=== PATIENT | male | born 1950 | race Caucasian/White ===

== ENCOUNTER → 2019-07-01 09:15 | Outpatient (BNVA) | payer OTHER, MEDICARE, SELFPAY | PROVIDERS: Family Provider Nurse Practitioner; PCP Nurse Practitioner; Visit Provider Nurse Practitioner | DX: E11.9 Type 2 diabetes mellitus without complications (principal) | CPT/HCPCS: 83036 ==

== ENCOUNTER → 2019-09-09 09:34 | Outpatient (BNVA) | payer OTHER, MEDICARE, SELFPAY | PROVIDERS: Family Provider Nurse Practitioner; PCP Nurse Practitioner; Visit Provider Nurse Practitioner | DX: I10 Essential (primary) hypertension (principal); E78.2 Mixed hyperlipidemia; J43.9 Emphysema, unspecified; K21.9 Gastro-esophageal reflux disease without esophagitis; M47.812 Spondylosis without myelopathy or radiculopathy, cervical region; M51.36 Other intervertebral disc degeneration, lumbar region; Z23 Encounter for immunization | CPT/HCPCS: 80053 ==

== ENCOUNTER → 2019-12-09 09:44 | Outpatient (BNVA) | payer OTHER, MEDICARE, SELFPAY | PROVIDERS: Family Provider Nurse Practitioner; PCP Nurse Practitioner; Visit Provider Nurse Practitioner | DX: E78.2 Mixed hyperlipidemia (principal); J43.9 Emphysema, unspecified; I10 Essential (primary) hypertension; K21.9 Gastro-esophageal reflux disease without esophagitis; M51.36 Other intervertebral disc degeneration, lumbar region; K58.9 Irritable bowel syndrome, unspecified; M19.041 Primary osteoarthritis, right hand; M19.042 Primary osteoarthritis, left hand | CPT/HCPCS: 80053; 80061; 81000 ==

== ENCOUNTER → 2020-03-09 10:08 | Outpatient (BNVA) | payer OTHER, MEDICARE, SELFPAY | PROVIDERS: Family Provider Nurse Practitioner; PCP Nurse Practitioner; Visit Provider Nurse Practitioner | DX: R73.9 Hyperglycemia, unspecified (principal) | CPT/HCPCS: 83036 ==

== ENCOUNTER → 2020-05-06 09:41 | Outpatient (BNVA) | payer OTHER, MEDICARE, SELFPAY | PROVIDERS: Family Provider Nurse Practitioner; PCP Nurse Practitioner; Visit Provider Nurse Practitioner | DX: M10.9 Gout, unspecified (principal) | CPT/HCPCS: 73562; 84550 ==

== ENCOUNTER → 2020-08-23 09:22 | Outpatient (BNVA) | payer OTHER, MEDICARE, SELFPAY | PROVIDERS: Family Provider Nurse Practitioner; PCP Nurse Practitioner; Visit Provider Nurse Practitioner | DX: E55.9 Vitamin D deficiency, unspecified (principal); I10 Essential (primary) hypertension; M51.36 Other intervertebral disc degeneration, lumbar region | CPT/HCPCS: 80053; 82306; 83735; 85025 ==

== ENCOUNTER → 2020-08-25 10:04 | Outpatient (BNVA) | payer OTHER, MEDICARE, SELFPAY | PROVIDERS: Family Provider Nurse Practitioner; PCP Nurse Practitioner; Visit Provider Nurse Practitioner | DX: M54.5 Low back pain (principal); M25.511 Pain in right shoulder; M19.011 Primary osteoarthritis, right shoulder; M54.2 Cervicalgia | CPT/HCPCS: 72040; 72100; 73030 ==

== ENCOUNTER → 2020-11-24 11:10 | Outpatient (BNVA) | payer OTHER, MEDICARE, SELFPAY | PROVIDERS: Family Provider Nurse Practitioner; PCP Nurse Practitioner; Visit Provider Nurse Practitioner | DX: I10 Essential (primary) hypertension (principal); Z12.5 Encounter for screening for malignant neoplasm of prostate; M51.36 Other intervertebral disc degeneration, lumbar region; K58.9 Irritable bowel syndrome, unspecified; E78.2 Mixed hyperlipidemia; K21.9 Gastro-esophageal reflux disease without esophagitis; M19.041 Primary osteoarthritis, right hand; M19.042 Primary osteoarthritis, left hand; R41.3 Other amnesia | CPT/HCPCS: 80053; 81000; 82607; 84443; 85025; G0103 ==

== ENCOUNTER → 2021-02-24 10:01 | Outpatient (BNVA) | payer OTHER, MEDICARE, SELFPAY | PROVIDERS: Family Provider Nurse Practitioner; PCP Nurse Practitioner; Visit Provider Nurse Practitioner | DX: M51.36 Other intervertebral disc degeneration, lumbar region (principal); E53.8 Deficiency of other specified B group vitamins; K58.9 Irritable bowel syndrome, unspecified; I10 Essential (primary) hypertension; E78.2 Mixed hyperlipidemia; M19.041 Primary osteoarthritis, right hand; M19.042 Primary osteoarthritis, left hand; L29.9 Pruritus, unspecified | CPT/HCPCS: 82607 ==

== ENCOUNTER → 2021-04-11 12:04 | Outpatient (BNVA) | payer OTHER, MEDICARE, SELFPAY | PROVIDERS: Family Provider Nurse Practitioner; PCP Nurse Practitioner; Visit Provider Nurse Practitioner | DX: Z20.822 Contact with and (suspected) exposure to COVID-19 (principal) | CPT/HCPCS: 87635 ==

== ENCOUNTER → 2021-05-04 09:57 | Outpatient (BNVA) | payer OTHER, MEDICARE, SELFPAY | PROVIDERS: Family Provider Nurse Practitioner; PCP Nurse Practitioner; Visit Provider Nurse Practitioner | DX: J43.9 Emphysema, unspecified (principal); R05.9 Cough, unspecified; I25.10 Atherosclerotic heart disease of native coronary artery without angina pectoris | CPT/HCPCS: 71046 ==

== ENCOUNTER → 2021-05-24 10:19 | Outpatient (BNVA) | payer OTHER, MEDICARE, SELFPAY | PROVIDERS: Family Provider Nurse Practitioner; PCP Nurse Practitioner; Visit Provider Nurse Practitioner | DX: M51.36 Other intervertebral disc degeneration, lumbar region (principal); E53.8 Deficiency of other specified B group vitamins; E78.2 Mixed hyperlipidemia; K58.9 Irritable bowel syndrome, unspecified; I10 Essential (primary) hypertension; K21.9 Gastro-esophageal reflux disease without esophagitis; M19.041 Primary osteoarthritis, right hand; M19.042 Primary osteoarthritis, left hand | CPT/HCPCS: 80053; 80061; 82607 ==

== ENCOUNTER → 2021-10-25 11:13 | Outpatient (BNVA) | payer MEDICARE, OTHER, SELFPAY | PROVIDERS: Family Provider Nurse Practitioner; PCP Nurse Practitioner; Visit Provider Nurse Practitioner | DX: K58.9 Irritable bowel syndrome, unspecified (principal); E53.8 Deficiency of other specified B group vitamins; M51.36 Other intervertebral disc degeneration, lumbar region; I10 Essential (primary) hypertension; K21.9 Gastro-esophageal reflux disease without esophagitis; E78.2 Mixed hyperlipidemia; M19.041 Primary osteoarthritis, right hand; M19.042 Primary osteoarthritis, left hand; J43.9 Emphysema, unspecified | CPT/HCPCS: 80053; 80061; 82607 ==

== ENCOUNTER → 2022-01-18 11:45 | Outpatient (BNVA) | payer MEDICARE, OTHER, SELFPAY | PROVIDERS: Family Provider Nurse Practitioner; PCP Nurse Practitioner; Visit Provider Nurse Practitioner | DX: M51.36 Other intervertebral disc degeneration, lumbar region (principal); M19.041 Primary osteoarthritis, right hand; M19.042 Primary osteoarthritis, left hand; E78.2 Mixed hyperlipidemia; K21.9 Gastro-esophageal reflux disease without esophagitis; I10 Essential (primary) hypertension; K58.9 Irritable bowel syndrome, unspecified; L29.9 Pruritus, unspecified; E53.8 Deficiency of other specified B group vitamins | CPT/HCPCS: 80053; 82607 ==

== ENCOUNTER → 2022-04-05 11:19 | Outpatient (BNVA) | payer MEDICARE, OTHER, SELFPAY | PROVIDERS: Family Provider Nurse Practitioner; PCP Nurse Practitioner; Visit Provider Nurse Practitioner | DX: M54.50 Low back pain, unspecified (principal); R41.3 Other amnesia | CPT/HCPCS: 81000 ==

== ENCOUNTER 2022-05-02 07:11 | Outpatient (CLI) | payer MEDICARE, SELFPAY ==
--- NOTE | 2022-05-02 07:15 | MR_ITS ---
WS: [id number] MRI HEAD WITHOUT CONTRAST TECHNIQUE: Sagittal T1, T2 axial, T2 axial FLAIR, axial and coronal T1 images, axial susceptibility w eighted imaging, axial diffusion weighted images, and coronal T2 images were obtained. CLINICAL INFORMATION: R41.3 - Other amnesia COMPARISON: None. FINDINGS: No evidence of restricted diffusion to suggest acute ischemia. Ventricular system and basal cisterns are patent. Moderate small vessel changes. Moderate parenchymal volume loss. Small vessel changes in the alex. Normal posterior fossa. Normal vascular flow voids at the skull base. No extra-axial fluid collections. No evidence of mass or mass effect. Paranasal sinuses and mastoid air cells well aerated . Tiny focus of hemosiderin in the RIGHT inferior cerebellar tonsil. No other foci of hemosiderin. Norm al optic chiasm and pituitary infundibulum. Mild symmetric atrophy temporal lobes and hippocampal for mations. Normal cavernous sinuses and Meckel's cave. MR/MR head wo con* [id number] IMPRESSION: 1. No evidence of restricted diffusion to suggest acute ischemia. 2. Moderate small vessel changes with moderate parenchymal volume loss. Small vessel changes in the alex. 3. Paranasal sinuses and mastoid air cells well aerated. 4. Tiny focus of hemosiderin in the RIGHT inferior cerebellar tonsil. No other foci of hemosiderin. 5. Normal optic chiasm and pituitary infundibulum. 6. Mild symmetric atrophy temporal lobes and hippocampal formations.
== END 2022-05-02 07:12 | disposition home or self-care (01) ==
LOC: RAD 07:12
PROVIDERS: Family Provider Nurse Practitioner; PCP Nurse Practitioner; Visit Provider Nurse Practitioner
DX: R41.3 Other amnesia (principal); G31.89 Other specified degenerative diseases of nervous system
CPT/HCPCS: 70551

== ENCOUNTER → 2022-05-08 10:45 | Outpatient (BNVA) | payer MEDICARE, OTHER, SELFPAY | PROVIDERS: Family Provider Nurse Practitioner; PCP Nurse Practitioner; Visit Provider Nurse Practitioner | DX: I10 Essential (primary) hypertension (principal); J02.9 Acute pharyngitis, unspecified; R26.9 Unspecified abnormalities of gait and mobility; F03.90 Unspecified dementia, unspecified severity, without behavioral disturbance, psychotic disturbance, mood disturbance, and anxiety; M41.9 Scoliosis, unspecified; J43.9 Emphysema, unspecified; W19.XXXA Unspecified fall, initial encounter; Y92.009 Unspecified place in unspecified non-institutional (private) residence as the place of occurrence of the external cause; S00.93XA Contusion of unspecified part of head, initial encounter | CPT/HCPCS: 81000; 87880 ==

== ENCOUNTER → 2022-06-12 11:17 | Outpatient (BNVA) | payer MEDICARE, OTHER, SELFPAY | PROVIDERS: Family Provider Nurse Practitioner; PCP Nurse Practitioner; Visit Provider Nurse Practitioner | DX: I10 Essential (primary) hypertension (principal); F32.9 Major depressive disorder, single episode, unspecified; M51.36 Other intervertebral disc degeneration, lumbar region; J43.9 Emphysema, unspecified; E78.2 Mixed hyperlipidemia; K58.9 Irritable bowel syndrome, unspecified; E53.8 Deficiency of other specified B group vitamins | CPT/HCPCS: 81000 ==

== ENCOUNTER 2022-07-10 09:42 | Outpatient (CLI) | payer MEDICARE, OTHER, SELFPAY ==
[2022-07-10 11:40] LABS: Albumin Level 4.1 g/dL (3.5-5.2); Anion Gap 14.6 (5-19); Blood Urea Nitrogen 38 mg/dL (8-23); Calcium 9.9 mg/dL (8.5-10.5); Carbon Dioxide 23 mmol/L (22-29); Chloride 103 mmol/L (98-107); Glucose 104 mg/dL (65-115); Phosphorus 3.8 mg/dL (2.5-4.5); Potassium 4.6 mmol/L (3.5-5.1); Sodium 136 mmol/L (136-145)
== END 2022-07-10 09:43 | disposition home or self-care (01) ==
PROVIDERS: Family Provider Nurse Practitioner; PCP Nurse Practitioner; Visit Provider Internal Medicine Nephrology
DX: N17.0 Acute kidney failure with tubular necrosis (principal)
CPT/HCPCS: 80069

== ENCOUNTER 2022-08-04 10:56 | Outpatient (CLI) | payer MEDICARE, OTHER, SELFPAY ==
[2022-08-04 11:42] LABS: Basophils # 0.1 10^3/uL (0.0-0.1); Basophils % 0.5 %; Eosinophils # 0.2 10^3/uL (0.0-0.8); Eosinophils % 2.6 %; Hematocrit 37.6 % (42.0-52.0); Hemoglobin 11.8 g/dL (11.7-16.6); Lymphocytes # 2.9 10^3/uL (0.8-4.8); Lymphocytes % 31.9 %; Mean Corpuscular HGB Conc 31.4 g/dL (30.0-36.0); Mean Corpuscular Volume 101.9 fl (80-94); Mean Platelet Volume 8.6 fL (7.4-10.4); Monocytes % 10.8 %; Neutrophils # 4.89 10^3/uL (1.8-7.7); Neutrophils % 53.7 %; Nucleated Red Blood Cells % 0 %; Platelet Count 377 10^3/cmm (130-400); Red Blood Count 3.69 10^6/uL (4.1-5.3); Red Cell Distribution Width 13.6 % (12.1-15.1); White Blood Count 9.1 10^3/uL (4.0-10.0)
[2022-08-04 12:05] LABS: Albumin Level 4.4 g/dL (3.5-5.2); Anion Gap 16.2 (5-19); Blood Urea Nitrogen 39 mg/dL (8-23); Calcium 9.7 mg/dL (8.5-10.5); Carbon Dioxide 24 mmol/L (22-29); Chloride 101 mmol/L (98-107); Glucose 139 mg/dL (65-115); Phosphorus 4.2 mg/dL (2.5-4.5); Potassium 6.2 mmol/L (3.5-5.1); Sodium 135 mmol/L (136-145)
[2022-08-04 12:09] LABS: Urine Creatinine 74 mg/dL (39-259)
[2022-08-04 12:11] LABS: Calcium 9.7 mg/dL (8.5-10.5)
[2022-08-04 12:15] LABS: UPRO/UCREAT Ratio 0.35 mg/mg CR; Urine Protein Random 26 mg/dL
[2022-08-04 12:18] LABS: Parathyroid Hormone 63.4 pg/mL (15-65)
== END 2022-08-04 10:57 | disposition home or self-care (01) ==
PROVIDERS: PCP Nurse Practitioner; Visit Provider Registered Nurse
DX: N18.9 Chronic kidney disease, unspecified (principal)
CPT/HCPCS: 80069; 82310; 82570; 83970; 84156; 85025

== ENCOUNTER → 2022-08-17 17:05 | Outpatient (BNVA) | payer MEDICARE, OTHER, SELFPAY | PROVIDERS: PCP Nurse Practitioner; Visit Provider Nurse Practitioner | DX: N18.32 Chronic kidney disease, stage 3b (principal) | CPT/HCPCS: 80048; 82043 ==

== ENCOUNTER 2022-10-03 12:13 | Outpatient (CLI) | payer MEDICARE, OTHER, SELFPAY ==
[2022-10-03 13:14] LABS: Basophils % 0.4 %; Eosinophils # 0.2 10^3/uL (0.0-0.8); Eosinophils % 2.5 %; Hematocrit 40.8 % (42.0-52.0); Hemoglobin 13.2 g/dL (11.7-16.6); Lymphocytes % 25.6 %; Mean Corpuscular HGB Conc 32.4 g/dL (30.0-36.0); Mean Corpuscular Hemoglobin 32.2 pg (28.0-34.0); Mean Corpuscular Volume 99.5 fl (80-94); Mean Platelet Volume 8.7 fL (7.4-10.4); Monocytes # 0.7 10^3/uL (0.2-0.9); Monocytes % 8.6 %; Neutrophils % 62.6 %; Nucleated Red Blood Cells % 0 %; Platelet Count 283 10^3/cmm (130-400); Red Cell Distribution Width 12.5 % (12.1-15.1)
[2022-10-03 13:35] LABS: Calcium 8.7 mg/dL (8.5-10.5); Urine Creatinine 131 mg/dL (39-259)
[2022-10-03 13:36] LABS: UPRO/UCREAT Ratio 0.31 mg/mg CR; Urine Protein Random 41 mg/dL
[2022-10-03 13:40] LABS: Chol HDL Ratio 2.64 mg/dL (1.0-5.00); Cholesterol 148 mg/dL (0-200); HDL Cholesterol 56 mg/dL (60-100); LDL Cholesterol Calculated 67 mg/dL (50-129); Triglycerides 126 mg/dL (0-150); VLDL Cholestrol Calculation 25 mg/dL (0-30)
[2022-10-03 13:42] LABS: Parathyroid Hormone 58.5 pg/mL (15-65)
[2022-10-03 13:57] LABS: Vitamin B12 286 pg/mL (232-1245)
[2022-10-03 13:59] LABS: 25 Hydroxy Vitamin D 30 ng/mL (30-100); Alanine Aminotransferase 22 U/L (0-41); Alkaline Phosphatase 72 U/L (40-130); Aspartate Amino Transferase 21 U/L (0-40); Blood Urea Nitrogen 19 mg/dL (8-23); Calcium 8.8 mg/dL (8.5-10.5); Carbon Dioxide 26 mmol/L (22-29); Chloride 105 mmol/L (98-107); Globulin 2.6 g/dL (1.3-4.6); Glucose 108 mg/dL (65-115); Osmolality Calculated 293 mOsm/kg (285-295); Sodium 140 mmol/L (136-145); Total Bilirubin 0.5 mg/dL (0.15-1.2); Total Protein 6.6 g/dL (6.6-8.7)
== END 2022-10-03 12:14 | disposition home or self-care (01) ==
PROVIDERS: PCP Nurse Practitioner; Visit Provider Registered Nurse
DX: N18.32 Chronic kidney disease, stage 3b (principal); E55.9 Vitamin D deficiency, unspecified; E53.8 Deficiency of other specified B group vitamins; I10 Essential (primary) hypertension
CPT/HCPCS: 80053; 80061; 82306; 82310; 82570; 82607; 83970; 84156; 85025

== ENCOUNTER → 2023-02-21 12:25 | Outpatient (BNVA) | payer MEDICARE, MEDICAID, SELFPAY | PROVIDERS: PCP Nurse Practitioner; Visit Provider Nurse Practitioner | DX: F32.9 Major depressive disorder, single episode, unspecified (principal); E53.8 Deficiency of other specified B group vitamins; K58.9 Irritable bowel syndrome, unspecified; F03.90 Unspecified dementia, unspecified severity, without behavioral disturbance, psychotic disturbance, mood disturbance, and anxiety; M51.36 Other intervertebral disc degeneration, lumbar region; M10.9 Gout, unspecified; E78.2 Mixed hyperlipidemia; R23.8 Other skin changes | CPT/HCPCS: 80053; 80061; 81000; 82607 ==

== ENCOUNTER 2023-04-09 14:49 | Outpatient (CLI) | payer MEDICARE, MEDICAID, SELFPAY ==
[2023-04-09 15:28] LABS: Basophils % 0.3 %; Eosinophils # 0.3 10^3/uL (0.0-0.8); Eosinophils % 2.9 %; Hematocrit 46.1 % (37-53); Lymphocytes # 2.7 10^3/uL (0.8-4.8); Lymphocytes % 26.1 %; Mean Corpuscular HGB Conc 32.5 g/dL (30-55); Mean Corpuscular Hemoglobin 32.8 pg (27-33); Mean Corpuscular Volume 100.9 fl (82-101); Mean Platelet Volume 8.6 fL (7.4-10.4); Monocytes # 0.9 10^3/uL (0.2-0.9); Monocytes % 8.1 %; Neutrophils # 6.49 10^3/uL (1.8-7.7); Neutrophils % 62.2 %; Nucleated Red Blood Cells % 0 %; Platelet Count 286 10^3/cmm (157-399); Red Blood Count 4.57 10^6/uL (3.85-5.65); Red Cell Distribution Width 12.1 % (12.1-15.1); White Blood Count 10.44 10^3/uL (3.29-11.43)
[2023-04-09 15:49] LABS: Albumin Level 4.2 g/dL (3.5-5.2); Anion Gap 12.2 (5-19); Blood Urea Nitrogen 25 mg/dL (8-23); Calcium 9.4 mg/dL (8.5-10.5); Carbon Dioxide 30 mmol/L (22-29); Chloride 101 mmol/L (98-107); Glucose 119 mg/dL (65-115); Phosphorus 2.9 mg/dL (2.5-4.5); Potassium 4.2 mmol/L (3.5-5.1); Sodium 139 mmol/L (136-145)
[2023-04-09 15:53] LABS: Calcium 9.5 mg/dL (8.5-10.5)
[2023-04-09 15:54] LABS: Creatinine Urine, Random 90 mg/dL (39-259); Microalbum Creatinine Ratio Ur 33 mg/dL (0-20); Microalbumin Random Urine 3 ug/dL (0-20)
[2023-04-09 16:00] LABS: Parathyroid Hormone 50.3 pg/mL (15-65)
[2023-04-09 16:06] LABS: 25 Hydroxy Vitamin D 30 ng/mL (30-100)
== END 2023-04-09 14:50 | disposition home or self-care (01) ==
PROVIDERS: PCP Nurse Practitioner; Visit Provider Registered Nurse
DX: E55.9 Vitamin D deficiency, unspecified (principal); N17.9 Acute kidney failure, unspecified
CPT/HCPCS: 36415; 80069; 82044; 82306; 82310; 83970; 85025

== ENCOUNTER → 2023-07-31 16:10 | Outpatient (BNVA) | payer MEDICARE, MEDICAID, SELFPAY | PROVIDERS: PCP Nurse Practitioner; Visit Provider Nurse Practitioner Family | DX: R05.9 Cough, unspecified (principal) | CPT/HCPCS: 87400; 87426 ==

== ENCOUNTER → 2023-08-07 14:34 | Outpatient (BNVA) | payer MEDICARE, MEDICAID, SELFPAY | PROVIDERS: PCP Nurse Practitioner; Visit Provider Nurse Practitioner | DX: F32.9 Major depressive disorder, single episode, unspecified (principal); E53.8 Deficiency of other specified B group vitamins; K58.9 Irritable bowel syndrome, unspecified; F03.90 Unspecified dementia, unspecified severity, without behavioral disturbance, psychotic disturbance, mood disturbance, and anxiety; M51.36 Other intervertebral disc degeneration, lumbar region; M10.9 Gout, unspecified; R00.0 Tachycardia, unspecified; I10 Essential (primary) hypertension; E78.2 Mixed hyperlipidemia; J43.9 Emphysema, unspecified | CPT/HCPCS: 74018; 80053; 81000; 84443; 85025 ==

== ENCOUNTER 2023-08-24 13:53 | Outpatient (CLI) | payer MEDICARE, MEDICAID, SELFPAY ==
[2023-08-24 14:29] LABS: Alanine Aminotransferase 60 U/L (0-41); Albumin Level 4.1 g/dL (3.5-5.2); Alkaline Phosphatase 82 U/L (40-130); Anion Gap 14.1 (5-19); Aspartate Amino Transferase 42 U/L (0-40); Blood Urea Nitrogen 31 mg/dL (8-23); Carbon Dioxide 26 mmol/L (22-29); Chloride 103 mmol/L (98-107); Globulin 3.3 g/dL (1.3-4.6); Glucose 147 mg/dL (65-115); Osmolality Calculated 297 mOsm/kg (285-295); Potassium 4.1 mmol/L (3.5-5.1); Sodium 139 mmol/L (136-145); Total Bilirubin 0.8 mg/dL (0.15-1.2); Total Protein 7.4 g/dL (6.6-8.7)
[2023-08-24 14:30] LABS: Ammonia 12 umol/L (16-60)
== END 2023-08-24 13:54 | disposition home or self-care (01) ==
LOC: LAB 13:56
PROVIDERS: PCP Nurse Practitioner; Visit Provider Nurse Practitioner
DX: J43.9 Emphysema, unspecified (principal)
CPT/HCPCS: 36415; 80053; 82140

== ENCOUNTER 2023-09-05 09:01 | Outpatient (CLI) | payer MEDICARE, MEDICAID, SELFPAY ==
--- NOTE | 2023-09-05 09:00 | CT_ITS ---
WS: [id number] CT chest wo con [id number] HISTORY: J43.9 - Emphysema, unspecified TECHNIQUE: Axial imaging performed through the thorax. Coronal and sagittal reformats are submitted. All CT scans at [facility] use at least one of these dose optimization techniques: automated exposure control; mA and/or kV adjustment per patient size (includes targeted exams where dose is mat ched to clinical indication); or iterative reconstruction. CONTRAST: None DLP: 344.31 mGy.cm COMPARISON: None available. Lungs and central airway: Mild hyperexpansion and centrilobular emphysema. Mild early changes of bron chiectasis in the RIGHT middle and RIGHT lower lobes. No pulmonary mass or nodule. Pleura: Normal. No pleural effusion. Heart and pericardium: Mild cardiomegaly. Scattered coronary artery calcifications. Mediastinum and valeria: No mediastinum or hilar adenopathy. Vessels: Mild aneurysmal dilatation ascending aorta. Maximum diameter of 4.6 cm. Normal descending th oracic aortic diameter. Mild atherosclerotic plaque. Normal size pulmonary artery. Chest wall and lower neck: No soft tissue masses. Upper abdomen: LEFT renal cyst 2.3 cm. Mild bilateral perinephric stranding around the upper poles of each kidney. No adrenal mass. Osseous structures: No destructive process. IMPRESSION: 1. Mild chronic emphysema. 2. Mild RIGHT middle and RIGHT lower lobe bronchiectasis. 3. Ascending thoracic aortic aneurysm 4.6 cm. Aneurysm tapers normally through the arch. 4. LEFT renal cyst.
== END 2023-09-05 09:02 | disposition home or self-care (01) ==
LOC: RAD 09:01
PROVIDERS: PCP Nurse Practitioner; Visit Provider Nurse Practitioner
DX: J43.9 Emphysema, unspecified (principal); R06.09 Other forms of dyspnea; J47.9 Bronchiectasis, uncomplicated; I71.21 Aneurysm of the ascending aorta, without rupture
CPT/HCPCS: 71250

== ENCOUNTER → 2023-10-23 10:32 | Outpatient (BNVA) | payer MEDICARE, MEDICAID, SELFPAY | PROVIDERS: PCP Nurse Practitioner; Visit Provider Nurse Practitioner | DX: I10 Essential (primary) hypertension (principal); R73.9 Hyperglycemia, unspecified | CPT/HCPCS: 80053; 81000; 83036; 85025 ==